=== PATIENT | female | born 1995 | race Two or more races ===

== ENCOUNTER 2020-08-15 10:56 | Outpatient (REF) | payer OTHER, SELFPAY ==
[2020-08-15 17:31] LABS: COVID-19 Test Negative (Negative)
== END 2020-08-15 10:57 | disposition home or self-care (01) ==
LOC: HO.LAB 10:56
PROVIDERS: Visit Provider Internal Medicine
DX: Z20.828 Contact with and (suspected) exposure to other viral communicable diseases (principal)
CPT/HCPCS: 36415; 87635

== ENCOUNTER 2021-03-06 10:23 | Outpatient (REF) | payer OTHER, SELFPAY ==
[2021-03-06 12:40] LABS: HCG Quantitative < 2 mIU/mL
[2021-03-06 12:49] LABS: Alanine Aminotransferase 27 U/L (0-31); Aspartate Amino Transferase 16 U/L (5-31); Triglycerides 79 mg/dL
== END 2021-03-06 10:24 | disposition home or self-care (01) ==
LOC: HO.LAB 10:23
PROVIDERS: PCP Internal Medicine; Visit Provider Physician Assistant
DX: L70.0 Acne vulgaris (principal)
CPT/HCPCS: 36415; 84450; 84460; 84478; 84702

== ENCOUNTER 2021-04-05 09:39 | Outpatient (REF) | payer OTHER, SELFPAY ==
[2021-04-05 10:39] LABS: HCG Quantitative < 2 mIU/mL
[2021-04-05 10:41] LABS: Alanine Aminotransferase 19 U/L (0-31); Aspartate Amino Transferase 20 U/L (5-31); Triglycerides 110 mg/dL
== END 2021-04-05 09:40 | disposition home or self-care (01) ==
LOC: HO.10HDL 09:39
PROVIDERS: Visit Provider Physician Assistant
DX: L70.0 Acne vulgaris (principal); Z79.899 Other long term (current) drug therapy
CPT/HCPCS: 36415; 84450; 84460; 84478; 84702

== ENCOUNTER 2021-05-08 08:19 | Outpatient (REF) | payer OTHER, SELFPAY ==
[2021-05-08 14:24] LABS: Alanine Aminotransferase 14 U/L (0-31); Aspartate Amino Transferase 18 U/L (5-31); Triglycerides 135 mg/dL
[2021-05-08 14:35] LABS: HCG Quantitative < 2 mIU/mL
== END 2021-05-08 08:20 | disposition home or self-care (01) ==
LOC: HO.LAB 08:19
PROVIDERS: PCP Internal Medicine; Visit Provider Physician Assistant
DX: L70.0 Acne vulgaris (principal); Z79.899 Other long term (current) drug therapy
CPT/HCPCS: 36415; 84450; 84460; 84478; 84702

== ENCOUNTER 2021-05-24 08:11 | Outpatient (REF) | payer OTHER, SELFPAY ==
[2021-05-24 10:53] LABS: Alanine Aminotransferase 12 U/L (0-31); Aspartate Amino Transferase 14 U/L (5-31); Triglycerides 79 mg/dL
[2021-05-24 11:02] LABS: HCG Quantitative < 2 mIU/mL
== END 2021-05-24 08:12 | disposition home or self-care (01) ==
LOC: HO.10HDL 08:11
PROVIDERS: Visit Provider Physician Assistant
DX: L70.0 Acne vulgaris (principal); Z79.899 Other long term (current) drug therapy
CPT/HCPCS: 36415; 84450; 84460; 84478; 84702; 86611